=== PATIENT | female | born 1985 | race Caucasian/White ===

== ENCOUNTER 2021-05-26 10:21 | Emergency (ER) | payer OTHER ==
[~2021-05-26] VITALS: Ht 160 cm; Wt 102.0 kg
[2021-05-26] MEDS ORDERED: LIDOCAINE HCL/EPINEPHRINE 1%-EPI 1:100,000 20 ML VIAL INFIL ONE (11:30)
[2021-05-26] MEDS ORDERED: TOPUD PO (12:12)
[2021-05-26] MEDS ORDERED: ACETAMINOPHEN WITH CODEINE 300/30MG TABLET PO ONE (12:15)
[2021-05-26 12:38] VITALS: BP 114/64
== END 2021-05-26 14:01 | disposition home or self-care (01) ==
LOC: ER 10:22
DX: S01.01XA Laceration without foreign body of scalp, initial encounter (principal); S92.345A Nondisplaced fracture of fourth metatarsal bone, left foot, initial encounter for closed fracture; W01.190A Fall on same level from slipping, tripping and stumbling with subsequent striking against furniture, initial encounter; Y93.89 Activity, other specified; Y92.018 Other place in single-family (private) house as the place of occurrence of the external cause
CPT/HCPCS: 12002; 70450; 73030; 73620; 99284; J3490; Z7610